=== PATIENT | female | born 1950 | race Caucasian/White ===

== ENCOUNTER 2021-03-13 08:28 | Day surgery (SDC) | payer MEDICARE, OTHER ==
[~2021-03-13] VITALS: Ht 154.9 cm; Wt 101.4 kg
[2021-03-13 09:05] VITALS: BP 140/87
[2021-03-13] MEDS ORDERED: LOVA40TA2 PO (09:17)
[2021-03-13] MEDS ORDERED: HYDR25TA4 PO (09:17)
[2021-03-13] MEDS ORDERED: LEVO112T5 PO (09:17)
[2021-03-13] MEDS ORDERED: ASPI-1265 PO (09:18)
[2021-03-13] MEDS ORDERED: OSC500T PO (09:18)
[2021-03-13] MEDS ORDERED: vitamin d3 (09:19)
[2021-03-13] MEDS ORDERED: FERR325T28 PO (09:20)
[2021-03-13] MEDS ORDERED: iohexol 300 MG/1 ML 50ml polymer ONE (09:35)
[2021-03-13 10:09] VITALS: BP 136/80
[2021-03-13 10:15] VITALS: BP 127/75
== END 2021-03-13 10:30 | disposition home or self-care (01) ==
LOC: SSTAY O 08:28
PROVIDERS: ATTEND Radiology Vascular & Interventional Radiology
DX: Z43.6 Encounter for attention to other artificial openings of urinary tract (principal); E87.5 Hyperkalemia; E11.9 Type 2 diabetes mellitus without complications; I10 Essential (primary) hypertension; E78.5 Hyperlipidemia, unspecified; E03.9 Hypothyroidism, unspecified; N17.9 Acute kidney failure, unspecified; E66.9 Obesity, unspecified; Z68.41 Body mass index [BMI] 40.0-44.9, adult; Z87.440 Personal history of urinary (tract) infections; Z88.1 Allergy status to other antibiotic agents; Z79.899 Other long term (current) drug therapy
CPT/HCPCS: 50389; 50431; Q9967; 74425